=== PATIENT | female | born 2000 | race Caucasian/White ===

== ENCOUNTER 2024-12-04 22:32 | Emergency (ER) | payer OTHER ==
[2024-12-04 22:39] VITALS: BP 131/75; PULSE 92; RESP 17; TEMP 97.8; BMI 28.2
== END 2024-12-04 23:50 | disposition home or self-care (01) ==
LOC: JER 22:32
DX: O20.9 Hemorrhage in early pregnancy, unspecified (principal); Z3A.10 10 weeks gestation of pregnancy
CPT/HCPCS: 99283-25; 99284-25